=== PATIENT | male | born 1940 | race Caucasian/White ===

== ENCOUNTER 2023-10-06 08:57 | Emergency (ER) | payer MEDICARE, OTHER, SELFPAY ==
[2023-10-06 08:58] VITALS: BP 135/78; PULSE 99; RESP 14; TEMP 36.3; O2SAT 100
--- NOTE | 2023-10-06 09:44 | EDS_ITS ---
HPI History of Present Illness Chief Complaint: Weakness Narrative Narrative: 83-year-old male presenting with COVID-19. Patient started having symptoms yesterday. has been ill with COVID-19 for this week. She is on Paxlovid. She states that he started to feel ill yesterday. He has not had any fevers at home. He has no cough. Has not been short of breath. He is slight diminished p.o. intake but5 PFSH PFSH Allergy/AdvReac Type Severity Reaction Status Date / Time gentamicin Allergy Mild Hives Verified 10/06/23 09:02 levofloxacin Allergy Mild Hives Verified 10/06/23 09:02 vancomycin Allergy Mild Hives Verified 10/06/23 09:02 paroxetine [From Paxil] AdvReac Severe Other Verified 10/06/23 09:02 pseudoephedrine AdvReac Severe TACHYCARDIA Verified 10/06/23 09:02 Social History Smoking Status: Never smoker EXAM Physical Exam Const Vital Signs: 10/06/23 08:58 10/06/23 08:57 Temperature 97.4 F L Temperature Source Temporal Pulse Rate 99 Respiratory Rate 14 Respiratory Effort Normal Respiratory Pattern Normal Blood Pressure 135/78 H Blood Pressure Mean 97 Pulse Ox 100 Oxygen Delivery Method Room Air Discharge Plan Triage Chief Complaint: Weakness ED Provider: Mo Bullard Dx/Rx/DC Orders Instructions: Coronavirus Disease 2019 (COVID-19): Caring for Yourself or Others Primary Care Provider: Steve Kevin Referrals: Steve Kevin MD [Primary Care Provider] - As soon as possible Disposition Disposition: Home, Self Care
--- NOTE | 2023-10-06 09:44 | EX.ED.DYSGE1 ---
HPI History of Present Illness Chief Complaint: Weakness Narrative Narrative: 83-year-old male presenting with COVID-19. Patient started having symptoms yesterday. has been ill with COVID-19 for this week. She is on Paxlovid. She states that he started to feel ill yesterday. He has not had any fevers at home. He has no cough. Has not been short of breath. He is slight diminished p.o. intake but is still able to eat and drink. He has not had any nausea or vomiting. Patient's concerned because he is a poor informant. She states he woke up at about 3 AM this morning and did get out of bed to about 530 and he was a little unsteady and confused. She states he has a baseline dementia but he is less alert than usual. He is able to answer the month and tell me the president but gets confused about the year. states this is a little bit less than baseline. No history of head trauma. No facial droop, slurred speech. Using all 4 extremities. I was able to get him up and ambulate him around the room and he is has a steady gait at this point. PFSH PFSH Home Medications ondansetron 4 mg disintegrating tablet 4 mg PO Q8H PRN PRN Nausea #14 tabs 10/06/23 [Rx Last Taken Unknown] Allergy/AdvReac Type Severity Reaction Status Date / Time gentamicin Allergy Mild Hives Verified 10/06/23 09:02 levofloxacin Allergy Mild Hives Verified 10/06/23 09:02 vancomycin Allergy Mild Hives Verified 10/06/23 09:02 paroxetine [From Paxil] AdvReac Severe Other Verified 10/06/23 09:02 pseudoephedrine AdvReac Severe TACHYCARDIA Verified 10/06/23 09:02 Social History Smoking Status: Never smoker ROS ROS ED ROS Narrative Generalized weakness/confusion Constitutional Constitutional ED: Denies chills, fever(s) or sweats Eyes Eyes: Denies blurry vision or change in vision ENT ENT ED: Denies ear pain or sore throat Cardiovascular Cardiovascular: Denies chest pain, palpitations or racing heartbeat Respiratory/Chest Respiratory/Chest: Denies cough, dyspnea or sputum Gastrointestinal Gastrointestinal: Denies abdominal pain, constipation, diarrhea, nausea or vomiting Genitourinary Genitourinary ED: Denies dysuria, hematuria or urinary frequency Musculoskeletal Musculoskeletal: Denies arthralgias, myalgias or neck pain Integumentary Denies abscess, Abrasions or rash Neurologic Neurologic: Denies headache(s), paresthesias or weakness Psychiatric Psychiatric: Denies anxiety, depression, suicidal ideation or suicidal thoughts Endocrine Endocrinology: Denies polydipsia or polyuria EXAM Physical Exam Const Vital Signs: 10/06/23 08:58 10/06/23 08:57 10/06/23 09:55 Temperature 97.4 F L 97.6 F L Temperature Source Temporal Pulse Rate 99 89 Respiratory Rate 14 16 Respiratory Effort Normal Respiratory Pattern Normal Blood Pressure 135/78 H 128/78 H Blood Pressure Mean 97 94 Pulse Ox 100 99 Oxygen Delivery Method Room Air Positive well nourished General Appearance ED: NAD; Negative for pallor HEENT Reports moist mucous membranes Eyes PERRL and EOMs intact bilaterally Neck no lymphadenopathy Resp normal respiratory effort and clear to auscultation bilaterally Auscultation: Negative for rales, rhonchi or wheezes Cardio regular rate and regular rhythm GI normal to inspection, nondistended, normoactive bowel sounds Neuro CN's II-XII intact bilaterally and no sensory deficits noted Neuro Narrative: Alert to self, month, knows the president is Kirby Anguiano. Confused about year. Sensorium / Orientation: alert Motor Exam: strength 5/5 throughout Psych mental status grossly normal Skin no rashes or lesions noted General Skin Exam: Negative for jaundice or pallor MDM MDM MDM Narrative Medical decision making narrative: Patient presenting with some weakness and confusion. His is concerned because he was weak this morning but she feels he is back up to baseline now. He is able to ambulate to the car and into the ER. states he did require some assistance. I did get him up and ambulate him around the room and he seems stable. His vital signs are normal. Physical exam is normal. Discussed with the at length and since he is doing well she feels that she can manage him at home. 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 Patient was swabbed for COVID, influenza, RSV as the is concerned he might have something else viral. She tested positive for COVID and he tested positive for COVID this morning. Counseled patient's that I would call her with the results and I did at 11 AM. She states that he seems to be a little shaky at home and has an episode of vomiting and I offered to call in some Zofran for her recommended to give him.. He is also recommended that if he is not better to bring him back to the ER and will try to get him feeling better and do a workup. Believe this is likely minimal this. Impression: 1. COVID-19 2. Generalized weakness 3. Confusion 4. Nausea/vomit Discharge Plan Triage Chief Complaint: Weakness ED Provider: Mo Bullard Dx/Rx/DC Orders Instructions: Coronavirus Disease 2019 (COVID-19): Caring for Yourself or Others Prescriptions: New ondansetron 4 mg tablet,disintegrating 4 mg PO Q8H PRN PRN (Reason: Nausea) Qty: 14 0RF Primary Care Provider: Steve Kevin Referrals: Steve eKvin MD [Primary Care Provider] - As soon as possible Disposition Disposition: Home, Self Care Discharge Date/Time: 10/06/23 09:56
[2023-10-06 09:55] VITALS: BP 128/78; PULSE 89; RESP 16; TEMP 36.4; O2SAT 99
== END 2023-10-06 09:56 | disposition home or self-care (01) ==
LOC: ED 09:45
PROVIDERS: Emergency Provider Student in an Organized Health Care Education/Training Program; PCP Internal Medicine; Visit Provider Student in an Organized Health Care Education/Training Program
DX: U07.1 COVID-19 (principal); F03.90 Unspecified dementia, unspecified severity, without behavioral disturbance, psychotic disturbance, mood disturbance, and anxiety
CPT/HCPCS: 87631; 99282